=== PATIENT | female | born 1980 | race Caucasian/White ===

== ENCOUNTER → 2016-05-21 | Outpatient (CLI) | payer OTHER | LOC: FIMAGING 12:30 | PROVIDERS: ATTEND Midwife | DX: O09.512 Supervision of elderly primigravida, second trimester (principal); O43.122 Velamentous insertion of umbilical cord, second trimester; Z3A.27 27 weeks gestation of pregnancy; Z14.1 Cystic fibrosis carrier ==

== ENCOUNTER → 2016-06-30 | Outpatient (CLI) | payer OTHER | LOC: FIMAGING 11:00 | PROVIDERS: ATTEND Midwife | DX: O09.513 Supervision of elderly primigravida, third trimester (principal); Z3A.33 33 weeks gestation of pregnancy ==

== ENCOUNTER → 2016-08-17 | Outpatient (CLI) | payer OTHER | LOC: FIMAGING 14:50 | PROVIDERS: ATTEND Midwife | DX: O09.513 Supervision of elderly primigravida, third trimester (principal); Z3A.40 40 weeks gestation of pregnancy ==

== ENCOUNTER 2016-08-18 16:00 | Inpatient (IN) | payer OTHER ==
[2016-08-18] MEDS ORDERED: ACETAMINOPHEN 325 MG TAB PO PRN (16:42)
[2016-08-18] MEDS ORDERED: diphenhydrAMINE 25 MG CAP PO PRN (16:43)
[2016-08-18] MEDS ORDERED: CALCIUM CARBONATE 500 MG CHEWABLE TAB PO PRN (16:43)
[2016-08-18] MEDS ORDERED: TERBUTALINE SULFATE 1 MG/ML VIAL IV PRN (17:04)
[2016-08-18] MEDS ORDERED: EPSOM SALT 454 GM TP PRN (17:04)
[2016-08-18] MEDS ORDERED: LR 1,000 ML IV PRN (17:04)
[2016-08-18] MEDS ORDERED: OXYTOCIN/RINGERS LACTATE 1,000 ML IV PRN (17:04)
[2016-08-18] MEDS ORDERED: OLIVE OIL 118 ML BTL MISC PRN (17:04)
[2016-08-18 17:31] LABS: % IMMATURE GRANULYOCYTES 0.3 % (0.0-1.1); ABSOLUTE IMMATURE GRANULOCYTES 0.03 10^3/uL (0.00-0.10); ADD DIFF? NO; ADD MORPH? NO; ADD SCAN? NO; ATYPICAL LYMPHOCYTE FLAG 10 (0-99); FRAGMENT RBC FLAG 0 (0-99); HEMATOCRIT 35.7 % (38.0-47.0); HEMOGLOBIN 12.6 g/dL (12.6-16.3); LEFT SHIFT FLG 0 (0-99); LIPEMIA HEMOLYSIS FLAG 90 (0-99); MEAN CELL HEMOGLOBIN 32.6 pg (27.9-34.1); MEAN CELL HEMOGLOBIN CONCENTR. 35.3 g/dL (32.4-36.7); MEAN CELL VOLUME 92.5 fL (81.5-99.8); MEAN PLATELET VOLUME 12.2 fL (8.7-11.7); PLATELET CLUMPS FLAG 0 (0-99); PLATELET COUNT 186 10^3/uL (150-400); RED BLOOD CELL COUNT 3.86 10^6/uL (4.18-5.33); RED CELL DISTRIBUTION WIDTH 12.4 % (11.5-15.2)
[2016-08-18 17:46] LABS: ALANINE AMINOTRANSFERASE 32 IU/L (9-52); ASPARTATE AMINOTRANSFERASE 25 IU/L (14-46); BILIRUBIN,TOTAL 0.7 mg/dL (0.1-1.4); BILIRUBIN-CONJUGATED 0.4 mg/dL (0.0-0.5); BILIRUBIN-UNCONJUGATED 0.3 mg/dL (0.0-1.1); CREATININE 0.7 mg/dL (0.6-1.0); GLOMERULAR FILTRATION RATE > 60; LACTATE DEHYDROGENASE 392 IU/L (313-618); URIC ACID 5.8 mg/dL (2.5-6.8)
[2016-08-19] MEDS ORDERED: TERBUTALINE SULFATE 1 MG/ML VIAL ONE (04:35)
[2016-08-19] MEDS ORDERED: OXYTOCIN 10 UNIT/ML VIAL ONE (04:35)
[2016-08-19] MEDS ORDERED: LIDOCAINE 1% 300 MG/30 ML SDV ONE (04:35)
[2016-08-19] MEDS ORDERED: OLIVE OIL 118 ML BTL ONE (04:35)
[2016-08-19] MEDS ORDERED: MISOPROSTOL 200 MCG TAB ONE (04:36)
[2016-08-19] MEDS ORDERED: OXYTOCIN/LR *STANDARD DOSE PROTOCOL IV SCH (05:00)
--- NOTE | 2016-08-19 07:54 | OBPROG ---
OBG Progress Note Assessment/Plan: Assessment: 36 y.o. admitted to L&D at 40 4/7 weeks for post-dates IOL. Gomez bulb placed in office. +SROM at 0700 with clear fluid noted. SVE /-1 Pitocin at 10 mu. VSS- afebrile. NST- reactive CAT I Plan: Continue pitocin IOL. Encourage ambulation. Continuous EFM and VS. Anticipate . 08/19/16 07:51 Subjective: Reports experiencing more pain with UCs. Gomez bulb removed. Discussed options and patient would like to ambulate at this time. Objective: 08/18/16 17:20 08/18/16 17:20 Patient ABO/Rh O POSITIVE 08/18/16 17:20 Uric Acid 5.8 mg/dL (2.5-6.8) 08/18/16 17:20 Total Bilirubin 0.7 mg/dL (0.1-1.4) 08/18/16 17:20 Conjugated Bilirubin 0.4 mg/dL (0.0-0.5) 08/18/16 17:20 Unconjugated Bilirubin 0.3 mg/dL (0.0-1.1) 08/18/16 17:20 AST 25 IU/L (14-46) 08/18/16 17:20 ALT 32 IU/L (9-52) 08/18/16 17:20 Lactate Dehydrogenase 392 IU/L (313-618) 08/18/16 17:20 - SVE Dilation (cm): 7 Effacement (%): 90 Station: -1 Current Contraction Pattern: Regular FHR (bpm): 130 FHR Pattern Variability: Moderate FHR Category: 1 Membranes: SROM Amniotic Fluid Color: Clear - Physical Exam General Appearance: WD/WN, alert, mild distress Estimated Weight: [id number] EENT: normal ENT inspection Neck: non-tender, full range of motion, normal inspection Respiratory: lungs clear, normal breath sounds Cardiac/Chest: regular rate, rhythm Abdomen: non-tender, soft Extremities: non-tender, normal inspection Back: Normal inspection Skin: normal color, warm/dry Neuro/Psych: alert, normal mood/affect, oriented x 3 ICD10 Worksheet Patient Problems: Problems Problem Status Onset Post-dates Acute - ICD10 Problem Qualifiers (1) Post-dates Qualifiers: Post-term type: P
--- NOTE | 2016-08-19 10:12 | OBPROC ---
- Labor and Delivery Onset of Contractions Date: 08/19/16 Onset of Contractions Time: 07:00 Onset of Contractions Type: Induced Rupture of Membranes Date: 08/19/16 Rupture of Membranes Time: 07:00 Rupture of Membranes Type: Spontaneous Amniotic Fluid Color: Clear Dilation Complete Time: 08:15 Delivery Type: Spontaneous Placenta Delivery Date: 08/19/16 Placenta Delivery Time: 09:55 Episiotomy/Laceration: 1st Degree Repair: 3-0, Vicryl EBL: 350 Complications: None - Medications Labor Augmentation/Induction Meds Used: Pitocin Labor Augmentation/Induction Indication: Post Dates Anesthesia: Local (Specify) - [place] Info Infant A Delivery Date: 08/19/16 Delivery Time: 09:50 Sex of : Male Score (1 Min): 9 Score (5 Min): 9
[2016-08-19] MEDS ORDERED: MISOPROSTOL 200 MCG TAB PO ONE (12:13)
[2016-08-19] MEDS ORDERED: OXYTOCIN 10 UNIT/ML VIAL IV ONE (12:14)
[2016-08-19] MEDS: IBUPROFEN 600 MG TAB PO PRN ×2 (12:16→18:13)
[2016-08-19] MEDS ORDERED: METHYLERGONOVINE MAL 0.2 MG TAB ONE (12:18)
[2016-08-19] MEDS: METHYLERGONOVINE MAL 0.2 MG TAB PO SCH ×3 (12:25→22:10)
[2016-08-20] MEDS: IBUPROFEN 600 MG TAB PO PRN (00:03)
[2016-08-20] MEDS: METHYLERGONOVINE MAL 0.2 MG TAB PO SCH ×3 (01:59→12:06)
[2016-08-20 05:20] LABS: % IMMATURE GRANULYOCYTES 0.5 % (0.0-1.1); ABSOLUTE IMMATURE GRANULOCYTES 0.06 10^3/uL (0.00-0.10); ADD DIFF? NO; ADD MORPH? NO; ADD SCAN? NO; ATYPICAL LYMPHOCYTE FLAG 0 (0-99); FRAGMENT RBC FLAG 0 (0-99); HEMATOCRIT 31.7 % (38.0-47.0); HEMOGLOBIN 11.2 g/dL (12.6-16.3); LEFT SHIFT FLG 10 (0-99); LIPEMIA HEMOLYSIS FLAG 90 (0-99); MEAN CELL HEMOGLOBIN 33.1 pg (27.9-34.1); MEAN CELL HEMOGLOBIN CONCENTR. 35.3 g/dL (32.4-36.7); MEAN CELL VOLUME 93.8 fL (81.5-99.8); MEAN PLATELET VOLUME 12.2 fL (8.7-11.7); PLATELET CLUMPS FLAG 10 (0-99); PLATELET COUNT 153 10^3/uL (150-400); RED BLOOD CELL COUNT 3.38 10^6/uL (4.18-5.33); RED CELL DISTRIBUTION WIDTH 12.5 % (11.5-15.2)
--- NOTE | 2016-08-20 07:35 | SOAPPROG ---
SOAP Progress Note Assessment/Plan: Assessment: 36 yo s/p , ppd 1, doing well. Plan: 08/20/16 07:34 Rh , rubella immune, routine care, home tomorrow. Subjective: 36 yo s/p , ppd 1, doing well. Objective: Vital Signs Temp Pulse Resp BP Pulse Ox 36.6 C 68 16 138/79 H 95 08/19/16 20:00 08/19/16 20:00 08/19/16 20:00 08/19/16 20:00 08/19/16 20:00 Laboratory Results 08/20/16 04:35 08/18/16 17:20 08/19/16 08/20/16 08/21/16 05:59 05:59 05:59 Output Total 400 Balance -400 Physical Exam - Physical Exam General Appearance: no apparent distress Abdomen: non-tender, soft Skin: warm/dry Extremities: non-tender Neuro/Psych: alert ICD10 Worksheet Patient Problems: Problems Problem Status Onset Post-dates Acute
[2016-08-20 20:30] VITALS: TEMP 98.1; O2SAT 92
--- NOTE | 2016-08-21 07:50 | OBGCSDC ---
General Delivery Information - General Info : 1 Para: 1 Delivery Physician/CNM: Мария Herrera Labs: Patient ABO/Rh O POSITIVE 08/18/16 17:20 Hct 31.7 % (38.0-47.0) L 08/20/16 04:35 Vaginal - Diagnosis IUP (Weeks): 40 4/7 Labor: Induced Rupture of Membranes Type: Spontaneous Amniotic Fluid Color: Clear Repair: 3-0, Vicryl Complications: None - Operations/Procedures Delivery Type: Spontaneous - Hospital Course Antepartum: +CF carrier (FOC neg). Marginal cord insertion. AMA Intrapartum: IOL for postdates. FB/pit. Rapid delivery : Routine pp care. Rh pos, Rub immune, s/p tdap - Delivery EBL: 350 Anesthesia: Local (Specify) Discharge Information - Discharge Information Condition: Good Instruction/Follow Up: Six Weeks Discharge Physician/CNM: Bushra Jones Discharge Date: 08/21/16 Dictated: No
[2016-08-21 07:58] VITALS: BP 115/77; PULSE 94; RESP 15
== END 2016-08-21 11:20 | disposition home or self-care (01) | DRG 775 ==
LOC: FLD 16:30 → FOB 08-19 13:43
PROVIDERS: ADMIT Midwife; ATTEND Midwife
PROC: 10E0XZZ Delivery of Products of Conception, External Approach (ICD-10-PCS; principal; 2016-08-19)
PROC: 0HQ9XZZ Repair Perineum Skin, External Approach (ICD-10-PCS; principal; 2016-08-19)
PROC: 3E033VJ Introduction of Other Hormone into Peripheral Vein, Percutaneous Approach (ICD-10-PCS; principal; 2016-08-19)
DX: O48.0 Post-term pregnancy (principal); O70.0 First degree perineal laceration during delivery; Z3A.40 40 weeks gestation of pregnancy; Z37.0 Single live birth
CPT/HCPCS: J2590; J3105

== ENCOUNTER → 2018-05-12 | Outpatient (CLI) | payer OTHER | LOC: FIMAGING 07:33 | PROVIDERS: ATTEND Advanced Practice Midwife | DX: O09.512 Supervision of elderly primigravida, second trimester (principal); Z3A.19 19 weeks gestation of pregnancy ==

== ENCOUNTER → 2018-06-09 | Outpatient (CLI) | payer OTHER | LOC: FLAB 08:36 | PROVIDERS: ATTEND Advanced Practice Midwife | DX: O09.522 Supervision of elderly multigravida, second trimester (principal); Z3A.24 24 weeks gestation of pregnancy ==

== ENCOUNTER 2018-07-18 16:54 | Observation (INO) | payer OTHER ==
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
== END 2018-07-18 20:05 | disposition home or self-care (01) ==
LOC: FLD 16:54
PROVIDERS: ADMIT Advanced Practice Midwife; ATTEND Advanced Practice Midwife
DX: O40.3XX0 Polyhydramnios, third trimester, not applicable or unspecified (principal); O36.8930 Maternal care for other specified fetal problems, third trimester, not applicable or unspecified; Z3A.29 29 weeks gestation of pregnancy
CPT/HCPCS: G0378 ×2

== ENCOUNTER → 2018-07-18 | Outpatient (CLI) | payer OTHER | LOC: FIMAGING 15:18 | PROVIDERS: ATTEND Obstetrics & Gynecology | DX: O09.523 Supervision of elderly multigravida, third trimester (principal); Z3A.30 30 weeks gestation of pregnancy | CPT/HCPCS: 87496-90; 87798-90; 88291-90 ==

== ENCOUNTER → 2018-07-21 | Outpatient (CLI) | payer OTHER | LOC: FIMAGING 09:46 | PROVIDERS: ATTEND Advanced Practice Midwife | DX: O36.23X0 Maternal care for hydrops fetalis, third trimester, not applicable or unspecified (principal); O40.3XX0 Polyhydramnios, third trimester, not applicable or unspecified; O36.8130 Decreased fetal movements, third trimester, not applicable or unspecified; O36.8330 Maternal care for abnormalities of the fetal heart rate or rhythm, third trimester, not applicable or unspecified; O35.8XX0 Maternal care for other (suspected) fetal abnormality and damage, not applicable or unspecified; O09.523 Supervision of elderly multigravida, third trimester; Z3A.30 30 weeks gestation of pregnancy ==